=== PATIENT | female | born 1975 | race Caucasian/White ===

== ENCOUNTER 2016-12-26 16:12 | Emergency (ER) | payer OTHER ==
[~2016-12-26] VITALS: Ht 172.7 cm; Wt 63.5 kg
[2016-12-26] MEDS ORDERED: Norco 7.5mg/325mg tab ORAL ONE (16:30)
[2016-12-26 16:40] VITALS: BP 125/101
[2016-12-26] MEDS ORDERED: Naproxen 500mg tab ORAL ONE (16:45)
[2016-12-26] MEDS ORDERED: NAPROSYN500 M1 ORAL (16:47)
--- NOTE | 2016-12-26 16:47 | Emergency Room Report ---
History of Present Illness General Chief Complaint: Upper Extremity Injury Source: Patient Present Illness HPI 41-year-old female presents to the emergency department complaining of pain, tenderness and obvious deformity in the left ring finger x20 minutes. Patient states she was at work when she fell and went to catch herself and sustained injury. Patient denies hitting her head she denies loss of consciousness. Patient denies taking blood thinning medications. Patient currently is wearing a sentimental being ambulate to the lid having it cut it is much as possible. Denies numbness tingling or loss of sensation or gross motor movements of the extremities, incontinence of bowel or bladder. Denies CP, Palpitations, LOC, AMS , dizziness, Changes in Vision, Sensation, paresthesias, or a sudden severe headache. Allergies: Coded Allergies: ASPIRIN (Verified Allergy, Unknown, 12/26/16) Patient History Past Medical History: see triage record Past Surgical History: none Pertinent Family History: none Last Menstrual Period: one and 1/2 week ago Now: No Reviewed Nursing Documentation: PMH: Agreed, PSxH: Agreed Nursing Documentation-PMH Past Medical History: No Stated History Review of Systems All Other Systems: negative except mentioned in HPI Physical Exam Vital Signs Date Time Temp Pulse Resp B/P (MAP) Pulse Ox O2 Delivery O2 Flow Rate FiO2 12/26/16 16:29 98.2 86 16 146/79 99 Room Air Sp02 EP Interpretation: reviewed, normal General Appearance: no apparent distress, alert, GCS 15, non-toxic Head: normocephalic, atraumatic Eyes: bilateral eye normal inspection, bilateral eye PERRL ENT: hearing grossly normal, normal voice Neck: full range of motion Respiratory: lungs clear, normal breath sounds, speaking full sentences Cardiovascular #1: regular rate, rhythm Musculoskeletal: back normal, gait/station normal, normal range of motion, swelling - mild swelling and deformity of the PIP of the left 4th digit. pt. is NVI, tender - PIP of the left 4th digit. Neurologic: alert, oriented x3, responsive, motor strength/tone normal, sensory intact, speech normal Psychiatric: judgement/insight normal, memory normal, mood/affect normal Skin: normal color, no rash, warm/dry, well hydrated Procedures Joint Reduction Joint Reduction : Consent: Verbal Joint Reduction Site: other - left 4th digit Procedural Sedation: No Reduction Attempts: One Pre-Procedure NV Exam: Yes Post-Procedure NV Exam: Yes Post Joint Reduction Film: joint reduced Patient Tolerated: Well Complications: None Medical Decision Making PA Attestation Dr. Ahmadi is my supervising Physician whom patient management has been discussed with. Diagnostic Impression: Primary Impression: Dislocation, finger, interphalangeal joint Qualified Codes: S63.279A - Dislocation of unspecified interphalangeal joint of unspecified finger, initial encounter ER Course Pt. presents to the ED c/o pain and deformity of the right ring finger s/p fall. Ddx considered but are not limited to Fracture, dislocation, contusion, Sprain/ Strain/Spasm, Epidural abscess, Neoplastic mets. Vital signs: are WNL, pt. is afebrile H&PE are most consistent with dislocation, will do imaging to r/o fracture, no current evidence of circulatory or neurological compromise. ORDERS: - X-ray Right hand 3 views - POSITIVE FOR DISLOCATION, negative for fx, or significant soft tissue injury, per preliminary read in ED by Dr. Ahmadi - interpretation is scribed by PA. -- X-ray Right hand 3 views - negative for fx, Dislocation, or significant soft tissue injury, per preliminary read in ED by Dr. Ahmadi - interpretation is scribed by DUARTE. ED INTERVENTIONS: - [place] PO -Naproxen PO Ice Pack - Finger Splint applied to the right by chemistry technologist. Pt. remains neurovascularly intact. DISCHARGE: At this time pt. is stable for d/c to home. Will provide printed patient care instructions, and any necessary prescriptions. Care plan and follow up instructions have been discussed with the patient prior to discharge. Last Vital Signs Date Time Temp Pulse Resp B/P (MAP) Pulse Ox O2 Delivery O2 Flow Rate FiO2 12/26/16 16:29 98.2 86 16 146/79 99 Room Air Disposition: HOME, SELF-CARE Condition: Stable Scripts Naproxen* (NAPROSYN*) 500 Mg Tablet 500 MG ORAL TWICE A DAY for 7 Days, #14 TAB Prov: Carmelita Hernandez 12/26/16 Referrals: NON PHYSICIAN (PCP) Patient Instructions: Finger or Thumb Dislocation Additional Instructions: Take medications as directed. Follow up with a Primary Care Provider in 3-5 days, even if your symptoms have resolved. --Please review list of primary care clinics, if you do not already have a primary care provider Return sooner to ED if new symptoms occur, or current symptoms become worse. - Please note that this Emergency Department Report was dictated using [employer] operator brick technology software, occasionally this can lead to erroneous entry secondary to interpretation by the dictation equipment. Carmelita Hernandez Dec 26, 2016 16:47
[2016-12-26 17:30] VITALS: BP 101/83
--- NOTE | 2016-12-27 10:30 | Diagnostic Imaging Report ---
Indication: Post reduction Findings: 3 views of the left hand were obtained. Alignment is anatomic with regard to the fourth PIP joint which was reduced. No fracture or other complications seen. Soft tissue swelling noted. Impression: Successful reduction of fourth PIP joint. No complication
--- NOTE | 2016-12-27 10:30 | Diagnostic Imaging Report ---
Indication: pain Findings: 3 views of the left hand were obtained. There is dislocation of the fourth PIP joint. No fracture seen. Impression: Dislocated fourth PIP joint
== END 2016-12-26 17:35 | disposition home or self-care (01) ==
LOC: EMR 16:34
DX: S63.275A Dislocation of unspecified interphalangeal joint of left ring finger, initial encounter (principal); W19.XXXA Unspecified fall, initial encounter; Y93.9 Activity, unspecified; Y99.9 Unspecified external cause status; Z88.6 Allergy status to analgesic agent
CPT/HCPCS: 99284